=== PATIENT | male | born 1970 | race Caucasian/White ===

== ENCOUNTER → 2018-01-22 | Outpatient (REF) | payer OTHER, SELFPAY | LOC: LAB 11:21 | DX: Z13.1 Encounter for screening for diabetes mellitus (principal); Z13.220 Encounter for screening for lipoid disorders; Z71.89 Other specified counseling | CPT/HCPCS: 80061; 82947 ==

== ENCOUNTER → 2019-02-11 11:00 | Outpatient (REF) | payer OTHER, SELFPAY ==
[2019-02-11 11:37] LABS: Cholesterol 207 mg/dL (140-199); Glucose Promotional 101 mg/dL (70-100); HDL Cholesterol 39 mg/dL (40-60); LDL Cholesterol Calculated 148 mg/dL (<100); Triglycerides 99 mg/dL (35-150)
[2019-02-11 11:50] LABS: Vitamin D 25 Hydroxy (D3) 24.7 ng/mL (30.0-100.0)
== END ==
LOC: LAB 11:00
DX: Z13.220 Encounter for screening for lipoid disorders (principal); Z71.89 Other specified counseling
CPT/HCPCS: 80061; 82306; 82947

== ENCOUNTER → 2020-04-13 08:42 | Outpatient (CLI) | payer OTHER, SELFPAY ==
[2020-04-13 09:39] LABS: Cholesterol 207 mg/dL (140-199); Glucose 108 mg/dL (70-100); HDL Cholesterol 40 mg/dL (40-60); LDL Cholesterol Calculated 146 mg/dL (<100); Triglycerides 103 mg/dL (35-150)
== END ==
PROVIDERS: PCP Family Medicine; Referring Provider Family Medicine; Visit Provider Family Medicine
DX: Z13.220 Encounter for screening for lipoid disorders (principal); Z13.1 Encounter for screening for diabetes mellitus
CPT/HCPCS: 36415; 80061; 82947

== ENCOUNTER → 2020-06-26 15:20 | Outpatient (CLI) | payer OTHER, SELFPAY ==
[2020-06-28 11:36] LABS: COVID19 Sendout Not Detected (Not Detect)
== END ==
PROVIDERS: PCP Family Medicine; Visit Provider Nurse Practitioner
DX: Z11.59 Encounter for screening for other viral diseases (principal)
CPT/HCPCS: 87635

== ENCOUNTER 2020-06-29 13:26 | Day surgery (SDC) | payer OTHER, SELFPAY ==
[2020-06-29] VITALS (7 sets, daily range): BP systolic 87–120; BP diastolic 49–70; PULSE 53–62; RESP 10–16; TEMP 36.1–36.9; O2SAT 95–97; BMI 28.8
--- NOTE | 2020-06-29 | PATH_ITS ---
[facility] Accession Number: [id number] . 01 Material submitted: . PART A: colon - POLYP AT 60CM PART B: colon - POLYP AT 20CM PART C: colon - MARGIN FROM POLYP AT 20CM PART D: colon - SMALL POLYPS AT 20CM . 01 Clinical history: . SCREENING COLONOSCOPY . 02 Diagnosis: A. Colon, Polyp at 60 cm, Biopsy: Serrated lesion, favor sessile serrated adenoma. . B. Colon, Polyp at 20 cm, Biopsy: Tubulovillous adenoma. No evidence of malignancy or high-grade dysplasia. . C. Colon, Margin From Polyp at 20 cm, Biopsy: Tubulovillous adenoma. No evidence of malignancy or high-grade dysplasia. . D. Colon, Small Polyp at 20 cm, Biopsies: Hyperplastic polyps. [facility] 07/01/2020 1024 Local . 02 Electronically signed: . Mya Cook MD, Pathologist NPI- [id number] . 01 Gross description: . A. Specimen A is received in formalin, labeled polyp at 60 cm and consists of a 0.6 x 0.4 x 0.2 cm sevilla polyp, which is entirely submitted in cassette A1. B. Specimen B is received in formalin, labeled polyp at 20 cm and consists of a 1.4 x 1.0 x 0.6 cm sevilla-pink polyp. The margin is inked blue. The specimen is bisected and entirely submitted in cassette B1. C. Specimen C is received in formalin, labeled margin from polyp at 20 cm and consists of three sevilla-pink fragments of soft tissue measuring 1.0 x 0.8 x 0.3 cm in aggregate. The specimen is entirely submitted in cassette C1. D. Specimen D is received in formalin, labeled small polyps at 20 cm and consists of multiple sevilla-pink fragments of soft tissue, measuring 1.0 x 0.8 x 0.3 cm in aggregate. The specimen is entirely submitted in cassette D1. ([id number]) /[facility] 06/30/2020 1811 Local . 02 Pathologist provided ICD-10: D12.6 . 02 CPT . 983156, 195211, 930117, 710129 Performed at: 01 [facility] [address] [address], [place], [place] [id number] MD Toño Mtz MD Phone: [phone] Performed at: [address] [id number] MD Mya Cook MD Phone: [phone]
[2020-06-29] MEDS: SODIUM CHLORIDE 0.9% 1,000 ML 200 ML IV ×2 (13:55→15:58)
--- NOTE | 2020-06-29 14:43 | PM.HP.1 ---
History of Present Illness History of Present Illness Date Patient Seen: 06/29/20 Time Patient Seen: 14:43 Chief complaint: SCREENING COLONOSCOPY Narrative: This is a 50-year-old man here for screening colonoscopy. He had a colonoscopy at age 18 for infectious colitis. No polyps or mucosal abnormalities were found other than the colitis. He occasionally has some rectal bleeding, which is self-limited. He denies any melena, unexplained abdominal pain, unexplained weight loss, family history of polyps or colon cancers. He says he is otherwise quite healthy. ROS: Thirteen system review is otherwise negative other than as mentioned below and in HPI. PE: GENERAL: Well groomed and cooperative. Appears stated age. Answers questions promptly and appropriately. Vital signs noted. HENT: Normocephalic, atraumatic. Hearing intact. EYES: Conjunctiva pink, sclera white, no periorbital swelling. CARDIOVASCULAR: Regular rate. No pedal edema. RESPIRATORY: Non-tachypneic, breathing comfortably on room air. GASTROINTESTINAL: Abdomen soft and non-distended GENITALURINARY: No flank tenderness. MUSCULOSKELETAL: Equal tone and mass bilaterally. SKIN: Warm, dry, soft, appropriate color for ethnicity. No other lesions, rashes, or wounds. NEURO: Alert and Oriented X 3. No gross sensory deficits, or cognitive issues. PSYCH: Appropriate affect and mood. Patient History Medical History Colitis (Chronic ~1987) Hemorrhoid (Chronic ~2009) Plantar warts (Chronic) Family & Social History Family History Father Diabetes mellitus Hyperlipidemia Mother Liver cancer Diabetes mellitus Hypertension Hyperlipidemia Grandfather Hypertension History of heart disease Grandmother History of heart disease Grandfather History of heart disease Hypertension Grandmother Breast cancer Social History: household members spouse lives independently Yes caregiver/support person No Tobacco & Substance use: Smoking Status Never smoker alcohol intake current alcohol intake frequency 0-2 drinks per day Substance Use Type does not use Meds Home Medications and Allergies Home Medications Medication Instructions Recorded Confirmed Type No Known Home Medications 04/01/19 06/29/20 History Allergies Allergy/AdvReac Type Severity Reaction Status Date / Time No Known Drug Allergies Allergy Verified 06/29/20 13:43 Exam Vital Signs (past 8 hours): - 06/29/20 13:55 Temperature 98.4 F Pulse Rate 62 Respiratory Rate 16 Blood Pressure 120/69 Pulse Oximetry 97 Oxygen Delivery Method Room Air Assessment & Plan Assessment and plan (1) At average risk for colon cancer: Status: Acute Assessment & Plan narrative: Risks and benefits of screening colonoscopy and possible polypectomy were discussed with the patient including risk of bleeding, perforation, need for additional procedures, risks of anesthesia. The patient desires to proceed with the colonoscopy procedure. COVID-19 COVID-19 status: Negative Result date/Date tested (Pos, Neg/Pending): 06/26/20 Time Spent With Patient Time with patient: 15-24 minutes
--- NOTE | 2020-06-29 14:45 | P.OP.ENDO_ITS ---
Operative Date/Time/Diagnoses Date of procedure: 06/29/20 Time of procedure: 14:46 Pre-op diagnosis: Average risk for colon cancer, appropriate age for screening colonoscopy Procedure & Clinicians Study performed: Colonoscopy Procedural sedation performed by the endoscopist Polypectomy with hot snare x2, cold snare x2, cold forceps x 5 Same procedure as scheduled: Yes Indications: Average risk for colon cancer, appropriate age for colon cancer screening Surgeon: Laya Carranza Procedure Notes SCOAP/Timeout: Performed Procedure in detail: The patient was brought to the room and placed in left lateral decubitus position with all bony prominences padded. A time-out was performed and then the patient was given procedural sedation starting with 4 mg of Versed and 100 mcg of fentanyl. Total of 10 mg of Versed and 150 micro g of fentanyl were given for the entire procedure. Vitals were monitored throughout the procedure and remained stable. Once adequately sedated, the procedure was begun. A rectal exam was performed revealing no abnormalities. The colonoscope was then introduced to the rectum and advanced to the cecum in the usual fashion. The cecum was identified by the appendiceal orifice, the mucosal tri- fold, and the ileocecal valve. The scope was then retracted while rotating side to side and examining each mucosal fold. 1 cm polyp was found at 60 cm in the colon and removed with hot snare. A very large 3 cm pedunculated polyp was found at 20 cm removed with hot snare. An additional margin was taken on the stalk and sent separately. This was taken with hot snare. Multiple (5) small polyps were also found at the same level around 20 cm in the colon. These were taken with cold forceps and snare. At the conclusion of the procedure retroflexion was performed and small grade 1-2 internal hemorrhoids without stigmata of bleeding were seen. The scope was then withdrawn from the rectum the procedure was concluded. The patient tolerated the procedure well and was transferred to the PACU in stable condition. Scope withdrawal time: 31 Sedation minutes: 43 Findings: polyp (Many polyps) Specimen(s): other (Polyp from 60 cm, large polyp from 20 cm, margin from stalk of large polyp, 5 small polyps from 20 cm) Complications: none Impression: Multiple adenomatous appearing polyps in the colon and rectum Post-procedure Recommendations: Colonscopy in 3 years (Final recommendation will depend on the pathology results, but given the number of polyps he should not wait longer than 3 years for repeat colonoscopy.) Follow up: as needed Disposition: PACU
[2020-06-29] MEDS: fentaNYL 250 MCG/5 ML INJ IV (14:46)
[2020-06-29] MEDS: MIDAZOLAM 5 MG/5 ML VIAL IV (14:46)
--- NOTE | 2020-06-29 16:37 | SUR.PHASEII ---
Pt up and ambulating gait steady, getting dressed now, tolerating po fluids without problems, ride on her way. Pt given all dc instructions and verbalized understanding.
--- NOTE | 2020-06-29 16:54 | SUR.PHASEII ---
Pt dcd via wc in stable condition with no c/o. Out to private vehicle at [facility] and . Discharge instructions given to , Karolyn as well and she verbalizes understanding
== END 2020-06-29 16:54 | disposition home or self-care (01) ==
PROVIDERS: PCP Family Medicine; Referring Provider Family Medicine; Visit Provider Surgery
PROC: 0DJD8ZZ Inspection of Lower Intestinal Tract, Via Natural or Artificial Opening Endoscopic (ICD-10-PCS; CPT 45378; principal; 2020-06-29 14:30)
DX: Z12.11 Encounter for screening for malignant neoplasm of colon (principal); K64.0 First degree hemorrhoids; D12.6 Benign neoplasm of colon, unspecified
CPT/HCPCS: 45385; 45384; 45380; 99152; 99153; J2250; J3010

== ENCOUNTER → 2021-01-25 14:22 | Outpatient (CLI) | payer OTHER, SELFPAY ==
[2021-01-25] MEDS: COVID-19 VACC #1, MRNA(MOD) 100 MCG/0.5 ML VIAL IM (14:36)
== END ==
PROVIDERS: PCP Family Medicine; Visit Provider Internal Medicine
DX: Z23 Encounter for immunization (principal)
CPT/HCPCS: 0011A; 91301

== ENCOUNTER → 2021-02-23 08:16 | Outpatient (CLI) | payer OTHER, SELFPAY ==
[2021-02-23] MEDS: COVID-19 VACC #2, MRNA(MOD) 100 MCG/0.5 ML VIAL IM (08:30)
== END ==
PROVIDERS: PCP Family Medicine; Visit Provider Internal Medicine
DX: Z23 Encounter for immunization (principal)
CPT/HCPCS: 0012A; 91301

== ENCOUNTER → 2021-03-11 10:03 | Outpatient (CLI) | payer OTHER, SELFPAY ==
[2021-03-11 11:12] LABS: Hemoglobin A1C% w Est Avg Glu 5.3 % (4.0-6.0)
[2021-03-11 11:22] LABS: Cholesterol 212 mg/dL (140-199); Glucose 105 mg/dL (70-100); HDL Cholesterol 47 mg/dL (40-60); LDL Cholesterol Calculated 146 mg/dL (<100); Triglycerides 97 mg/dL (35-150)
== END ==
PROVIDERS: PCP Family Medicine; Referring Provider Family Medicine; Visit Provider Family Medicine
DX: E78.5 Hyperlipidemia, unspecified (principal); R73.09 Other abnormal glucose
CPT/HCPCS: 36415; 80061; 82947; 83036

== ENCOUNTER → 2021-03-15 10:14 | Outpatient (CLI) | payer OTHER, SELFPAY ==
[2021-03-15 12:03] LABS: Prostate Specific Antigen Scrn 0.566 ng/mL (0.1-4.0)
== END ==
PROVIDERS: PCP Family Medicine; Referring Provider Family Medicine; Visit Provider Family Medicine
DX: R39.11 Hesitancy of micturition (principal); Z12.5 Encounter for screening for malignant neoplasm of prostate
CPT/HCPCS: 36415; G0103

== ENCOUNTER → 2021-03-25 10:25 | Outpatient (CLI) | payer OTHER, SELFPAY ==
--- NOTE | 2021-03-25 10:27 | DI.US.S_ITS ---
PROCEDURE: US SOFT TISSUE HEAD AND NECK INDICATIONS: nodule left frontal region TECHNIQUE: Real-time scanning was performed of the neck region of interest, with image documentation. COMPARISON: None. FINDINGS: There is a 2 mm thick 1.3 x 1.3 cm area of thickening of the soft tissues within the subcutaneous fat region, just superficial to the calvarial muscular layer. This is smoothly marginated, and nonspecific in appearance. It is considered likely benign. IMPRESSION: Nonspecific thin area of thickening of the soft tissues superficial to the muscular fascial layer overlying the calvarium. By appearance this is considered most likely benign and clinical follow-up is recommended. If unusual symptomatology and interval growth develops follow-up by contrast-enhanced MR scanning through this area would be recommended. Dictated by: Corby Molina M.D. on 03/25/2021 at 14:46 Approved by: Corby Molina M.D. on 03/25/2021 at 14:49
== END ==
PROVIDERS: PCP Family Medicine; Referring Provider Family Medicine; Visit Provider Family Medicine
DX: R22.0 Localized swelling, mass and lump, head (principal)
CPT/HCPCS: 76536

== ENCOUNTER → 2022-03-30 07:12 | Outpatient (CLI) | payer OTHER, SELFPAY ==
[2022-03-30 07:33] LABS: Add Manual Diff / Slide Review NO; Basophils Absolute Auto 100 /uL (0-100); Basophils Percent Auto 1.1 % (0-2); Eosinophils Absolute Auto 100 /uL (0-450); Eosinophils Percent Auto 2.4 % (2-4); Hematocrit 43.2 % (41-53); Hemoglobin 14.9 g/dL (13.5-17.5); Lymphocytes Absolute Auto 2000 /uL (1100-4500); Lymphocytes Percent Auto 37.4 % (25-40); Mean Corpuscular HGB Conc 34.5 % (30-36); Mean Corpuscular Hemoglobin 31.6 PG (26-34); Mean Corpuscular Volume 91.5 fL (80-100); Monocytes Absolute Auto 500 /uL (0-900); Monocytes Percent Auto 8.5 % (3-14); Neutrophils Absolute Auto 2800 /uL (1500-7000); Neutrophils Percent Auto 50.6 % (50-75); Platelet Count 205 X10^3/uL (150-400); Red Blood Cell Count 4.72 X10^6/uL (4.5-5.9); Red Cell Distribution Width 12.8 % (11.6-14.8); White Blood Cell Count 5.5 X10^3/uL (4.5-11.0)
[2022-03-30 07:46] LABS: Alanine Aminotransferase 31 IU/L (<50); Albumin 4.6 g/dL (3.5-5.0); Albumin Globulin Ratio 1.8 (1.0-2.8); Alkaline Phosphatase 53 U/L (38-126); Aspartate Aminotransferase 43 IU/L (17-59); BUN Creatinine Ratio 14.9 (6-22); Bilirubin Total 0.8 mg/dL (0.2-1.3); Blood Urea Nitrogen 15 mg/dL (9-20); Calcium 9.1 mg/dL (8.4-10.2); Carbon Dioxide 29 mmol/L (22-32); Chloride 104 mmol/L (98-107); Cholesterol 210 mg/dL (140-199); Estimated Glomerular Filt Rate > 60 mL/min (>60); Globulin 2.5 g/dL (1.7-4.1); Glucose 105 mg/dL (70-100); HDL Cholesterol 47 mg/dL (40-60); HEMOLYSIS < 15 (0-50); LDL Cholesterol Calculated 138 mg/dL (<100); Potassium 4.6 mmol/L (3.4-5.1); Sodium 139 mmol/L (137-145); Total Protein 7.1 g/dL (6.3-8.2); Triglycerides 124 mg/dL (35-150)
[2022-03-30 08:16] LABS: Thyroid Stimulating Hormone 2.25 uIU/mL (0.47-4.68)
== END ==
PROVIDERS: PCP Family Medicine; Referring Provider Physician Assistant; Visit Provider Physician Assistant
DX: E78.5 Hyperlipidemia, unspecified (principal); K62.5 Hemorrhage of anus and rectum
CPT/HCPCS: 36415; 80053; 80061; 84443; 85025

== ENCOUNTER → 2024-05-13 08:45 | Outpatient (CLI) | payer OTHER, SELFPAY ==
--- NOTE | 2024-05-13 08:47 | DI.RAD.S_ITS ---
PROCEDURE: XR FINGER RT MIN 2V INDICATIONS: finger pain TECHNIQUE: One-view of the hand and 2 views of the finger(s) acquired. COMPARISON: None. FINDINGS: Bones: No fractures or dislocations. No suspicious bony lesions. Mild osteoarthritic changes to the carpal carpal joints, carpometacarpal joints, DIP joints and proximal interphalangeal joint of the 1st digit. Soft tissues: No suspicious soft tissue calcifications. 2 small ossified bodies adjacent to the 3rd proximal phalanx which are of uncertain etiology. IMPRESSION: 1. No acute fracture or dislocation. 2. Mild osteoarthritic changes to the 1st digit. Dictated by: Niall Hall M.D. on 05/13/2024 at 12:47 Approved by: Niall Hall M.D. on 05/13/2024 at 12:57
[2024-05-13 10:02] LABS: Alanine Aminotransferase 45 IU/L (<50); Albumin 4.6 g/dL (3.5-5.0); Albumin Globulin Ratio 1.8 (1.0-2.8); Alkaline Phosphatase 64 U/L (38-126); Aspartate Aminotransferase 52 IU/L (17-59); BUN Creatinine Ratio 18.1 (6-22); Bilirubin Total 0.5 mg/dL (0.2-1.3); Blood Urea Nitrogen 19 mg/dL (9-20); Calcium 9.3 mg/dL (8.4-10.2); Carbon Dioxide 26 mmol/L (22-32); Chloride 104 mmol/L (98-107); Cholesterol 216 mg/dL (140-199); Estimated Glomerular Filt Rate > 60 mL/min (>60); Globulin 2.5 g/dL (1.7-4.1); Glucose 97 mg/dL (70-100); HDL Cholesterol 41 mg/dL (40-60); HEMOLYSIS < 15 (0-50); LDL Cholesterol Calculated 139 mg/dL (<100); Potassium 4.4 mmol/L (3.4-5.1); Sodium 138 mmol/L (137-145); Total Protein 7.1 g/dL (6.3-8.2); Triglycerides 179 mg/dL (35-150)
== END ==
PROVIDERS: PCP Family Medicine; Referring Provider Family Medicine; Visit Provider Family Medicine
DX: M79.646 Pain in unspecified finger(s) (principal); E78.5 Hyperlipidemia, unspecified
CPT/HCPCS: 36415; 73140; 80053; 80061

== ENCOUNTER → 2025-05-18 13:49 | Outpatient (CLI) | payer OTHER, SELFPAY ==
[2025-05-18 14:26] LABS: Alanine Aminotransferase 41 IU/L (<50); Albumin 4.5 g/dL (3.5-5.0); Albumin Globulin Ratio 1.8 (1.0-2.8); Alkaline Phosphatase 60 U/L (38-126); Blood Urea Nitrogen 18 mg/dL (9-20); Calcium 9.7 mg/dL (8.4-10.2); Carbon Dioxide 27 mmol/L (22-32); Chloride 104 mmol/L (98-107); Cholesterol 185 mg/dL (140-199); Estimated Glomerular Filt Rate > 60 mL/min (>60); Globulin 2.5 g/dL (1.7-4.1); Glucose 93 mg/dL (70-99); HDL Cholesterol 44 mg/dL (40-60); HEMOLYSIS < 15 (0-50); Potassium 4.1 mmol/L (3.4-5.1); Sodium 139 mmol/L (137-145); Total Protein 7.0 g/dL (6.3-8.2); Triglycerides 202 mg/dL (35-150)
== END ==
PROVIDERS: Family Provider Family Medicine; PCP Family Medicine; Referring Provider Family Medicine; Visit Provider Family Medicine
DX: E78.5 Hyperlipidemia, unspecified (principal)
CPT/HCPCS: 36415; 80053; 80061

== ENCOUNTER 2025-08-06 07:31 | Day surgery (SDC) | payer OTHER, SELFPAY ==
[2025-08-06] VITALS (7 sets, daily range): BP systolic 82–129; BP diastolic 36–76; PULSE 63–74; RESP 15–16; TEMP 36.2–36.7; O2SAT 97–99
--- NOTE | 2025-08-06 | PATH_ITS ---
[facility] Accession Number: [id number] No. of containers..02 Tissue . 01 Material submitted: . PART A: colon - COLON, 50 CM POLYP PART B: rectum - RECTUM, HYPERPLASTIC POLYP . 01 Diagnosis: A: COLON, AT 50 CM, POLYPECTOMY: Hyperplastic polyp. Additional deeper levels were examined. - B: RECTUM, POLYPECTOMY: Hyperplastic polyp. [facility] 08/19/2025 1319 Local . 01 Electronically signed: . Maximo Lopez MD, Pathologist NPI- [id number] . 01 Gross description: . Received are two formalin-filled containers both labeled with the patient's name. . A. In a container labeled 50 cm colon polyp, is one fragment of sevilla, soft tissue which measures 0.5 x 0.4 x 0.2 cm. The specimen is totally submitted in cassette A1. B. In a container labeled hyerplastic polyps of rectum, are three fragments of sevilla, soft tissue which range in size from 0.3 x 0.3 x 0.3 cm to 0.4 x 0.4 x 0.4 cm. All fragments are totally submitted in cassette B1. ([id number]) /[facility] 08/14/2025 0216 Local . 01 Pathologist provided ICD-10: Z86.0100, K62.5 . 01 CPT . 759399, 549346 Specimen Comment: A courtesy copy of this report has been sent to [facility] Performed at: [address] [address], [place], [place] [id number] MD Toño Mtz MD Phone: [phone]
--- NOTE | 2025-08-06 06:21 | P.HP_ITS ---
History of Present Illness History of Present Illness Date Patient Seen: 08/06/25 Time Patient Seen: 06:21 Chief complaint: Dx Colonoscopy w/poss bx Narrative: Patient presents for screening colonoscopy, possible hemorrhoid banding this morning. [facility] Medical History (Updated 05/13/24 @ 09:00 by Jenny Fraooq MD) Plantar warts Hemorrhoid (~2009) Colitis (~1987) Family History Father Diabetes mellitus Hyperlipidemia Mother Liver cancer Diabetes mellitus Hypertension Hyperlipidemia Grandfather Hypertension History of heart disease Grandmother History of heart disease Grandfather History of heart disease Hypertension Grandmother Breast cancer Social History marital status: household members: spouse lives independently: Yes caregiver/support person: No housing: house occupational status: employed second hand exposure: No alcohol intake: current substance use type: does not use Meds Home Medications and Allergies Home Medications ?Medication ?Instructions ?Recorded ?Confirmed ?Type sodium,potassium,mag sulfates 17.5 See Rx Instructions PO .COMPLEX 06/29/25 Rx gram-3.13 gram-1.6 gram oral soln #354 mL (Suprep Bowel Prep Kit) Allergies Allergy/AdvReac Type Severity Reaction Status Date / Time No Known Drug Allergies Allergy Verified 06/17/25 10:39 Exam Narrative Exam Narrative: Const General: healthy appearing, comfortable and no acute distress Orientation: alert and oriented x3 HENMT Ears: hearing grossly normal bilaterally Eyes Visual Valdes: normal visual valdes by confrontation Conjunctivae: conjunctivae normal Sclera: sclerae normal EOM: EOM intact bilaterally Resp Effort & Inspection: normal respiratory effort and able to speak in complete sentences Cardio Rate: regular rate GI Palpation: soft (NT) Extrem General: no pedal edema and no calf tenderness Assessment & Plan Assessment and plan (1) Rectal bleeding: Status: Acute (2) History of adenomatous polyp of colon: Problem details: Multiple - largest 3cm Status: Chronic Plan Plan screening colonoscopy, possible biopsy, possible internal hemorrhoid banding. The risks, benefits and options regarding the procedure were explained to the patient in detail. Risk discussion included but not limited to: bleeding, perforation, missed lesion, unable to reach cecum. The patient was encouraged to ask questions and they were answered to their satisfaction. The patient understands and is agreeable to proceed. Time-Based Coding :: [TOTAL MINUTES] spent with patient and on the chart (including review of chart, obtaining history, exam, reviewing outside data, placing orders, documenting exam and treatment plan, and counseling patient) on [DATE]. [employer] Conveyor Belt Operator Document charge(s): Yes Charge Codes Inpatient/observation care including admit and discharge same day: [id number]
[2025-08-06] MEDS: LACTATED RINGERS 1,000 ML 42 ML IV (08:00)
--- NOTE | 2025-08-06 09:16 | P.OP.COLON_ITS ---
Operative Date/Time/Diagnoses Date of procedure: 08/06/25 Time of procedure: 09:17 Pre-op diagnosis: Screening colonoscopy Post-op diagnosis: same Procedure & Clinicians Study performed: Screening colonoscopy with polypectomy, banding internal hemorrhoid Same procedure(s) as scheduled: Yes Indications: 55yo M, screening colonoscopy, h/o polypds Surgeon: Tesfaye Magdaleno Anesthesia Type: MAC +/- Procedure Notes SCOAP/Timeout: Performed Procedure in detail: Colonoscopy Patient placed in left lateral recumbent position. Time out was performed. Procedural sedation was administered by anesthesia. Examination began with a thorough inspection of the perianal area. There was no evidence of fissures, fistulae, external hemorrhoids or cutaneous malignancy. The colonoscope was then placed into the rectum and the lumen was insufflated with carbon dioxide. The scope was carefully advanced forward. Ultimately the cecum was intubated and confirmed by identification of the ileocecal valve, the appendiceal orifice and the confluence of the taenia. The scope was then slowly withdrawn examining the colon thoroughly in all directions. In the rectum, retroflexion of the scope was performed for inspection of the distal rectum and anal canal. ?Significant colonoscopy findings: ?1. Quality of the preparation-good, [place] 2-3, improved with irrigation/suction ?2. Multiple 3mm hyperplastic polyps in rectum, several cold biopsies taken for sampling 3. 4mm sessile polyp at 50cm, benign appearing, removed with cold snare and retrieved for pathology 4. Internal hemorrhoids with dominant column at 3 o'clock, successfully banded Scope withdrawal time: 9 minutes Findings: internal hemorrhoids and polyp(s) Specimen(s): other (polyps) Estimated Blood Loss: 5 Complications: none Impression: Internal hemorrhoids, s/p banding x 1 Colon polyps, path pending Post-procedure Recommendations: Colonoscopy in 10 years Plan for aftercare: PACU then home Follow up: as needed Disposition: PACU
== END 2025-08-06 09:56 | disposition home or self-care (01) ==
PROVIDERS: Family Provider Family Medicine; PCP Family Medicine; Referring Provider Surgery; Visit Provider Surgery
PROC: 0DJD8ZZ Inspection of Lower Intestinal Tract, Via Natural or Artificial Opening Endoscopic (ICD-10-PCS; CPT 45378; principal; 2025-08-06 08:30)
DX: Z12.11 Encounter for screening for malignant neoplasm of colon (principal); K64.8 Other hemorrhoids; K63.5 Polyp of colon; K62.1 Rectal polyp
CPT/HCPCS: 45380; 45398; J2704; J3010; J7120